=== PATIENT | male | born 1990 | race Caucasian/White ===

== ENCOUNTER 2019-10-03 08:39 | Emergency (ER) | payer SELFPAY ==
--- NOTE | 2019-10-03 08:47 | ED ---
Abdominal Pain/Male - HPI Summary HPI Summary: Patient is a 28 y/o M presenting to the ED for a chief complaint of right flank pain that began on 10/01/19. Patient states that on 09/30/19 he went out to drink alcohol and on the following day, he began to feel a sharp pain in his right flank. He was eating at the time the flank pain began. Patient denies any fever, dysuria, or hematuria. Movement worsens the pain. No alleviating factors are reported. Patient denies similar symptoms in the past. PMHx or FMHx of nephrolithiasis is denied. - History of Current Complaint Chief Complaint: EDFlankPain Stated Complaint: R FLANK PAIN PER PT Time Seen by Provider: 10/03/19 08:45 Hx Obtained From: Patient Onset/Duration: Sudden Onset, Still Present Timing: Constant Severity Initially: Severe Severity Currently: Severe Pain Intensity: 8 Pain Scale Used: 0-10 Numeric Location: Flank - Right Radiates: No Character: Sharp Aggravating Factor(s): Movement Alleviating Factor(s): Nothing Associated Signs And Symptoms: Negative: Fever, Urinary Symptoms - Negative dysuria or hematuria - Allergies/Home Medications Allergies/Adverse Reactions: Allergies Allergy/AdvReac Type Severity Reaction Status Date / Time No Known Allergies Allergy Verified 10/03/19 08:44 Home Medications: Home Medications Cyclobenzaprine TAB* [Flexeril 10 MG TAB*] 10 mg PO TID PRN 4 Days #12 tab 10/03 [Rx] Ibuprofen TAB* [Motrin TAB* 800 MG] 800 mg PO TID PRN 10 Days #30 tab 10/03/19 [ Rx] PMH/Surg Hx/FS Hx/Imm Hx Previously Healthy: Yes History: Denies: Hx Kidney Stones Sensory History: Reports: Hx Contacts or Glasses Denies: Hx Legally Blind, Hx Deafness Opthamlomology History: Reports: Hx Contacts or Glasses Denies: Hx Legally Blind EENT History: Denies: Hx Deafness - Surgical History Surgical History: None Surgery Procedure, Year, and Place: None Infectious Disease History: No Infectious Disease History: Denies: Traveled Outside the [place] in Last 30 Days - Family History Known Family History: Negative: Other - Nephrolithiasis - Social History Lives: With Family Alcohol Use: Occasionally Hx Substance Use: No Substance Use Type: Reports: None Hx Tobacco Use: No Smoking Status (MU): Never Smoked Tobacco Review of Systems Negative: Fever Positive: flank pain - Right. Negative: dysuria, hematuria All Other Systems Reviewed And Are Negative: Yes Physical Exam - Summary Physical Exam Summary: Constitutional: Well-developed, Well-nourished, Alert. (-) Distressed Skin: Warm, Dry HENT: Normocephalic; Atraumatic Eyes: Conjunctiva normal Neck: Musculoskeletal ROM normal neck. (-) JVD, (-) Stridor, (-) Nuchal rigidity Cardio: Rhythm regular, rate normal, Heart sounds normal; Intact distal pulses; Radial pulses are 2+ and symmetric. (-) Murmur Pulmonary/Chest wall: Effort normal. (-) Respiratory distress, (-) Wheezes, (-) Rales Abd: Soft, (-) tenderness, (-) Distension, (-) Guarding, (-) Rebound. Right flank pain. Musculoskeletal: (-) Edema. R parspinal lower thoracic/upper L spine TTP. No midline TL tenderness. Neuro: Alert, Oriented x3 Psych: Mood and affect Normal Triage Information Reviewed: Yes Vital Signs On Initial Exam: Initial Vitals Temp Pulse Resp BP Pulse Ox 98.4 F 87 18 155/103 99 10/03/19 08:40 10/03/19 08:40 10/03/19 08:40 10/03/19 08:40 10/03/19 08:40 Vital Signs Reviewed: Yes Procedures - Sedation Patient Received Moderate/Deep Sedation with Procedure: No Diagnostics - Vital Signs Vital Signs Temp Pulse Resp BP Pulse Ox 10/03/19 08:40 98.4 F 87 18 155/103 99 - Laboratory Result Diagrams: 10/03/19 08:51 10/03/19 08:51 Lab Statement: Any lab studies that have been ordered have been reviewed, and results considered in the medical decision making process. - CT Abdomen/Pelvis CT CT Interpretation Completed By: Radiologist Summary of CT Findings: Abdomen/Pelvis CT IMPRESSION: 1. No nephrolithiasis or hydronephrosis. 2. The appendix is poorly imaged. Reviewed by Dr. Kovacs. Re-Evaluation - Re-Evaluation First Eval Re-Evaluation Time: 10:32 Change: Unchanged Comment: At 10:32, patient is complaining of pain. Will give Toradol and Flexeril. Second Eval Re-Evaluation Time: 10:45 Change: Improved - Updated on CT results. Plan for discharge Abdominal Pain Male Course/Dx - Course Course Of Treatment: 28 y/o male w R flank pain. - No symptoms, UA with 2+ WBC no bacteria, GC/Chlam sent, no symptoms so treatment differed. CT w/o stone. Suspect MSK cause. Given motrin and flexeril. No fever or infectious symptoms - Diagnoses Provider Diagnoses: Right flank pain Discharge ED - Sign-Out/Discharge Documenting (check all that apply): Patient Departure - Discharge - Discharge Plan Condition: Stable Disposition: HOME Prescriptions: Cyclobenzaprine TAB* [Flexeril 10 MG TAB*] 10 mg PO TID PRN 4 Days #12 tab PRN Reason: Pain - Moderate Ibuprofen TAB* [Motrin TAB* 800 MG] 800 mg PO TID PRN 10 Days #30 tab PRN Reason: Pain - Moderate Patient Education Materials: Flank Pain (ED) Forms: *Work Release Referrals: [facility] [Outside] Additional Instructions: You were seen in the emergency department for flank pain. Your urine showed trace bacteria, we will send a culture and further testing impersonator character you if these are abnormal. Your CT scan did not show any stones out about his. You can take Motrin and Flexeril for pain. Please follow up with your primary care doctor in next 2-3 days and return to emergency department for worsening or concerning symptoms. It was a pleasure taking care of you today. - Billing Disposition and Condition Condition: STABLE Disposition: Home - Attestation Statements Document Initiated by Woodrow: Yes Documenting Scribe: Elo Middleton Provider For Whom Woodrow is Documenting (Include Credential): Vinny Kovacs MD Scribe Attestation: I, Elo Middleton, scribed for Vinny Kovacs MD on 10/03/19 at 1049. Scribe Documentation Reviewed: Yes Provider Attestation: The documentation as recorded by the Elo padilla accurately reflects the service I personally performed and the decisions made by me, Vinny Kovacs MD Status of Scribe Document: Viewed
[2019-10-03 09:01] LABS: ABS Eosinophils 0.1 10^3/ul (0-0.6); ABS Lymphocytes 1.8 10^3/ul (1.0-4.8); ABS Monocytes 0.6 10^3/ul (0-0.8); ABS Neutrophils 3.9 10^3/ul (1.5-7.7); Eosinophil % 1.7 %; Hematocrit 44 % (42-52); Hemoglobin 15.4 g/dL (14.0-18.0); Lymphocyte % 27.6 %; Mean Corpuscular HGB Conc 35 g/dL (31-36); Mean Corpuscular Hemoglobin 31 pg (27-31); Mean Corpuscular Volume 88 fL (80-94); Mean Platelet Volume 8.1 fL (7.4-10.4); Platelet Count 224 10^3/uL (150-450); Red Blood Count 4.94 10^6 /uL (4.18-5.48); Red Cell Distribution Width 13 % (10-15); White Blood Count 6.4 10^3/uL (3.5-10.8)
[2019-10-03 09:50] LABS: Albumin 4.2 g/dL (3.2-5.2); Albumin/Globulin Ratio 1.6 (1-3); BUN/Creatinine Ratio 16.7 (8-20); Calcium 9.3 mg/dL (8.6-10.3); EGFR African American 112.1 (>60); EGFR Non-African American 92.6 (>60); Globulin 2.7 g/dL (2-4); Potassium 3.6 mmol/L (3.5-5.0); Total Bilirubin 0.8 mg/dL (0.2-1.0); Total Protein 6.9 g/dL (6.4-8.9)
[2019-10-03 09:53] LABS: Urine Appearance Clear; Urine Bilirubin Negative (Negative); Urine Blood 1+ (Negative); Urine Color Yellow; Urine Glucose Negative (Negative); Urine Ketones Negative (Negative); Urine Nitrite Negative (Negative); Urine Protein Negative (Negative); Urine Specific Gravity 1.024 (1.010-1.030); Urine Urobilinogen Negative (Negative)
[2019-10-03 09:55] LABS: Urine Bacteria Absent (Absent); Urine Red Blood Cell 2+(6-10/hpf) (Absent); Urine White Blood Cell 2+(11-20/hpf) (Absent)
[2019-10-03] MEDS ORDERED: Cyclobenzaprine TAB* 10 MG PO ONE (10:32)
[2019-10-03] MEDS ORDERED: Ketorolac TAB * 10 MG TAB PO ONE (10:33)
[2019-10-03 11:06] VITALS: BP 120/85
[2019-10-03 11:22] LABS: HIV 4th Generation Nonreactive (Nonreactive)
== END 2019-10-03 11:06 | disposition home or self-care (01) ==
LOC: ED 08:39
DX: R10.9 Unspecified abdominal pain (principal)
CPT/HCPCS: 36415; 74176; 80053; 81003; 81015; 85025; 87086; 87389; 99283; A9270-GY